=== PATIENT | female | born 1980 | race Caucasian/White ===

== ENCOUNTER → 2016-09-05 | Outpatient (CLI) | payer OTHER ==
--- NOTE | 2016-09-05 15:28 | US ---
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 15 oz. WEIGHT PERCENTAGE BASED ON ESTABLISHED DATE: 95 % HC/AC: 1.1 FL/AC: 21 HEART RATE: 146 bpm RHYTHM: Normal ANATOMY SEEN (within normal limits): * Lateral Vent (< 1 cm) 0.5cm * Cisterna Magna (< 1.1 cm) 0.4cm * Nuchal Fold (< 0.6 cm) 0.3cm * Cerebellum (varies with age) 2.2cm Choroid Plexus (bilateral) Midline Falx Cavus Septi Pellucidi Four Chamber Heart Outflow tracts: LVOT/RVOT Stomach Situs Nose / Lips Diaphragm Kidneys (bilateral) Bladder Cord Insert Three Vessel Cord Longitudinal Spine Transverse Spine Arms (bilateral) Legs (bilateral) TECHNOLOGIST IMPRESSION: Viable 21w6d fetus seen and appears wnl Single live intrauterine gestation is present. heart tones are regular and measure 146 bpm whic h is within normal limits. There is no ultrasound evidence for placenta previa. Amniotic fluid index is upper limits of normal. Normal cephalad presentation to fetus is currently identified. biome try measurements are within normal limits. Detailed anatomical survey shows no suspicious abnormality during real-time scanning. Stomach bubble is slightly prominent on still images saved. IMPRESSION: As above
--- NOTE | 2016-09-18 16:48 | US ---
EXAMINATION TYPE: US OB Call Back DATE OF EXAM: 09/18/2016 4:39 PM COMPARISON: NONE CLINICAL HISTORY: OB CALLBACK. called back for prominent stomach bubble on anatomy scan. GESTATIONAL AGE / DATING Dates by Initial Survey Scan: (20 weeks/3 days) EDC: 10/20/2016 HEART RATE: 149 bpm RHYTHM: Normal ANATOMY SEEN (second anatomic survey look): Stomach: APPEARS NORMAL IMPRESSION: No distinct gastric abnormality identified at this time.
== END | disposition home or self-care (01) ==
LOC: RADUSWWP 12:39
PROVIDERS: ATTEND Obstetrics & Gynecology
DX: O36.62X0 Maternal care for excessive fetal growth, second trimester, not applicable or unspecified (principal)
CPT/HCPCS: 76811

== ENCOUNTER → 2016-09-18 | Outpatient (CLI) | payer OTHER ==
[2016-09-18 16:56] LABS: CH 31.2; CHCM 34.1; HCT 37.9 % (34.0-46.0); HDW 2.58; HGB 12.7 gm/dL (11.4-16.0); MCH 30.7 pg (25.0-35.0); MCHC 33.5 g/dL (31.0-37.0); MCV 91.9 fL (80.0-100.0); Mean Platelet Volume 6.8; RBC 4.12 m/uL (3.80-5.40); RDW 13.6 % (11.5-15.5); WBC 10.3 k/uL (3.8-10.6)
[2016-09-18 17:16] LABS: Glucose 98 mg/dL (74-99); Non-African American GFR(MDRD) >60 (>60 ml/min/1.73 sqM)
[2016-09-18 17:47] LABS: Hepatitis B Surface Ag Index 0.07
== END | disposition home or self-care (01) ==
LOC: LABWHC1 16:20
PROVIDERS: ATTEND Obstetrics & Gynecology
DX: Z34.02 Encounter for supervision of normal first pregnancy, second trimester (principal); Z34.82 Encounter for supervision of other normal pregnancy, second trimester; Z3A.00 Weeks of gestation of pregnancy not specified
CPT/HCPCS: 36415; 82565; 82947; 85027; 86762; 86780; 86850; 86900; 86901; 87340

== ENCOUNTER → 2016-12-19 | Outpatient (CLI) | payer OTHER ==
[2016-12-19 11:54] LABS: CHCM 33.6; HCT 34.9 % (34.0-46.0); HDW 2.81; HGB 11.8 gm/dL (11.4-16.0); MCH 30.2 pg (25.0-35.0); MCHC 33.7 g/dL (31.0-37.0); MCV 89.7 fL (80.0-100.0); Mean Platelet Volume 7.1; RBC 3.89 m/uL (3.80-5.40); RDW 13.4 % (11.5-15.5); WBC 9.3 k/uL (3.8-10.6)
== END | disposition home or self-care (01) ==
LOC: LABWHC1 10:22
PROVIDERS: ATTEND Obstetrics & Gynecology
DX: Z34.83 Encounter for supervision of other normal pregnancy, third trimester (principal)
CPT/HCPCS: 36415; 82950; 85027

== ENCOUNTER → 2016-12-22 | Outpatient (CLI) | payer OTHER ==
[2016-12-22 13:05] LABS: Glucose 3 Hour, Gest 138 mg/dL
== END | disposition home or self-care (01) ==
LOC: LABWHC1 08:26
PROVIDERS: ATTEND Obstetrics & Gynecology
DX: O99.810 Abnormal glucose complicating pregnancy (principal); Z3A.00 Weeks of gestation of pregnancy not specified
CPT/HCPCS: 36415; 82951; 82952

== ENCOUNTER 2017-01-05 19:35 | Inpatient (IN) | payer OTHER ==
[2017-01-05] MEDS ORDERED: TERBUTALINE 1 MG/ML VIAL SQ PRN (20:12)
[2017-01-05] MEDS ORDERED: AMPICILLIN 2,000 MG in SODIUM CHLORIDE 0.9% 100 ML IVPB STA (20:12)
[2017-01-05] MEDS ORDERED: CARBOPROST TROMETHAMINE 250 MCG/ML 1 ML AMP IM PRN (20:12)
[2017-01-05] MEDS ORDERED: OXYTOCIN 10 UNIT/ML 1 ML VIAL IM PRN (20:12)
[2017-01-05] MEDS ORDERED: METHYLERGONOVINE 0.2 MG/ML 1 ML AMP IM PRN (20:12)
[2017-01-05] MEDS ORDERED: LIDOCAINE 1% (PF) 10 MG/ML (30 ML SDV) SQ PRN (20:12)
[2017-01-05] MEDS: LACTATED RINGERS 1,000 ML IV SCH ×2 (20:15→22:47)
[2017-01-05 20:31] LABS: Basophils % (A) 0 %; CH 30.5; CHCM 35.3; Eosinophils # (A) 0.1 k/uL (0-0.7); Eosinophils % (A) 1 %; HCT 33.9 % (34.0-46.0); HGB 11.9 gm/dL (11.4-16.0); Luc # (Auto) 0.19; Luc % (Auto) 2; Lymphocytes % (A) 19 %; MCH 30.5 pg (25.0-35.0); MCHC 35.1 g/dL (31.0-37.0); MCV 86.9 fL (80.0-100.0); Mean Platelet Volume 7.9; Monocytes # (A) 0.4 k/uL (0-1.0); Monocytes % (A) 3 %; Neutrophils % (A) 75 %; RBC 3.91 m/uL (3.80-5.40); RDW 13.5 % (11.5-15.5); WBC 10.6 k/uL (3.8-10.6); WBC (Perox) 10.63
[2017-01-05] MEDS ORDERED: fentaNYL (PF) 50 MCG/ML 5 ML AMP ONE (20:39)
[2017-01-05] MEDS ORDERED: BUPIVACAINE (PF) 0.25% 30 ML VIAL ONE (20:39)
[2017-01-05] MEDS ORDERED: SODIUM CHLORIDE 0.9% 100 ML BAG ONE (20:39)
[2017-01-05] MEDS ORDERED: BUPIVACAINE (PF) 0.25% 25 ML, fentaNYL (PF) 200 MCG in SODIUM CHLORIDE 0.9% 71 ML EPIDURAL ONE (20:56)
[2017-01-05 21:02] VITALS: BMI 26.0
[2017-01-05] MEDS: OXYTOCIN 20 UNITS/1000 ML NS 1,000 ML IV SCH (21:30)
[2017-01-05] MEDS ORDERED: HYDROCORTISONE 2.5% RECTAL CREAM 30 GM TUBE RECTAL PRN (23:56)
[2017-01-05] MEDS ORDERED: ZOLPIDEM 5 MG TAB PO PRN (23:56)
[2017-01-05] MEDS ORDERED: SIMETHICONE 80 MG CHEWABLE PO PRN (23:56)
[2017-01-05] MEDS ORDERED: LANOLIN CREAM 5 GM TUBE TOPICAL PRN (23:56)
[2017-01-05] MEDS ORDERED: diphenhydrAMINE 50 MG/ML 1 ML VIAL IVP PRN ×2 (23:56)
[2017-01-05] MEDS ORDERED: BENZOCAINE SPRAY 57GM TOPICAL PRN (23:56)
[2017-01-05] MEDS ORDERED: Acetaminophen-Codeine 300-30mg TAB PO PRN ×2 (23:56)
[2017-01-05] MEDS ORDERED: diphenhydrAMINE 50 MG CAP PO PRN (23:56)
[2017-01-05] MEDS ORDERED: diphenhydrAMINE 25 MG CAP PO PRN (23:56)
[2017-01-05] MEDS ORDERED: WITCH HAZEL 1 EACH MED..PAD TOPICAL PRN (23:56)
--- NOTE | 2017-01-05 23:59 | P.HPOB ---
History of Present Illness H&P Date: 01/05/17 Chief Complaint: IUP term: premature rupture of membranes Kristina is 36 and at 37 weeks 6 days gestation who arrives following spontaneous rupture membranes. She is unclear as to when exactly her membranes ruptured it may have been up to 2 days ago. An Essure was positive. Her course otherwise has been uncomplicated and she is feeling well at this time she has had no other significant problems with the . Pertinent labs do include B+ blood type Rh generally was negative. Rubella was immune, hepatitis B surface antigen and RPR as well as GBS were all negative. On physical exam vital signs are stable and afebrile. Heart regular, lungs clear, extremities without pain. Abdomen soft gravid uterus is noted. heart tones are 140s and are reactive. She is amada every approximately 5 -7 minutes somewhat irregularly. Assessment intrauterine with unknown length of premature rupture of membranes. Getting to get into labor now. Term . Plan Pitocin augmentation of labor she expects using an epidural for analgesia. Past Medical History Past Medical History: GERD/Reflux Additional Past Medical History / Comment(s): Obstetric history: She has had 2 previous term deliveries. 2 miscarriages and 1 voluntary termination. This is her fifth and she's had care with Dr. Santo since 9 weeks gestation. Blood type B positive, antibodies negative, rubella immune, hepatitis B-, HIV nonreactive, cystic fibrosis negative, toxoplasmosis negative , GBS negative. At 32 weeks she was having some contractions and was dilated to 2 and half centimeters so Celestone was given. History of Any Multi-Drug Resistant Organisms: None Reported Additional Past Surgical History / Comment(s): D&C x 1 Past Anesthesia/Blood Transfusion Reactions: No Reported Reaction Past Psychological History: No Psychological Hx Reported Smoking Status: Former smoker Past Alcohol Use History: None Reported Past Drug Use History: None Reported - Past Family History Mother Family Medical History: Hypertension Father History Unknown: Yes Family Medical History: Hypertension Medications and Allergies Home Medications Medication Instructions Recorded Confirmed Type Pnv,Calcium 72/Iron/Folic Acid 1 each PO DAILY 09/23/15 10/26/15 History [ Plus Tablet] Allergies Allergy/AdvReac Type Severity Reaction Status Date / Time sulfamethoxazole Allergy Severe Anaphylaxis Verified 01/05/17 23:14 [From Bactrim] trimethoprim [From Bactrim] Allergy Severe Anaphylaxis Verified 01/05/17 23:14 Exam Osteopathic Statement: *. No significant issues noted on an osteopathic structural exam other than those noted in the History and Physical/Consult. - Vital Signs Vital signs: Vital Signs Temp Pulse Resp BP 01/05/17 20:56 18 01/05/17 20:15 97.4 F L 99 18 138/87 Intake and Output 01/05/17 01/05/17 01/06/17 14:59 22:59 06:59 Intake Total 1100 Balance 1100 Intake: IV 1100 Ampicillin 2,000 mg In 100 Sodium Chloride 0.9% 100 ml @ 200 mls/hr IVPB ONCE STA Rx#:[id number] Lactated Ringers 1,000 ml 1000 @ 125 mls/hr IV .Q8H COCO Rx#:[id number] Other: # Voids 1 Weight 62.596 kg Patient Weight 01/06/17 06:59 Weight 62.596 kg Results Result Diagrams: 01/05/17 20:20 Abnormal Lab Results - Last 24 Hours (Table) 01/05/17 Range/Units 20:20 Hct 33.9 L (34.0-46.0) % Neutrophils # 8.0 H (1.3-7.7) k/uL
--- NOTE | 2017-01-05 23:59 | P.PROBDLV ---
Vaginal Delivery Note - . Vaginal Delivery Note: Patient progressed to complete and pushed with spontaneous vaginal delivery of a viable male over an intact perineum from left occiput anterior position falling deliver the head a nuchal cord 1 was easily reduced anterior posterior shoulders delivered with gentle downward upper traction followed by the remainder the baby. Baby was then mouth and nares bulb suctioned and placed on mother's abdomen where the umbilical cord was locked pulsate for approximately 30 seconds and then was clamped and cut. Placenta was then delivered intact and Pitocin was added to the IV. scores were 9 and 9 at one and 5 minutes respectively the weight is however pending. Both mother and baby currently appear stable.
[2017-01-06] MEDS ORDERED: AMPICILLIN 1,000 MG in SODIUM CHLORIDE 0.9% 50 ML IVPB SCH (00:30)
[2017-01-06] MEDS: IBUPROFEN 600 MG TAB PO PRN ×4 (02:15→23:51)
[2017-01-06] MEDS: ACETAMINOPHEN TAB 325 MG TAB PO PRN ×2 (05:55→12:21)
[2017-01-06] MEDS: SENNOSIDES-DOCUSATE SODIUM 1 EACH TAB PO SCH ×2 (08:56→19:55)
--- NOTE | 2017-01-06 11:10 | P.PNOBGVD ---
Subjective - Subjective Principal diagnosis: day 1 Interval history: Overall Kristina is doing very well this morning. She is ambulating, voiding, and she is tolerating her diet. She voices no complaints. On physical exam vital signs are stable she is afebrile. Heart regular, lungs clear, extremities without pain. Assessment day 1. Plan continue current care. Patient reports: Reports appetite normal, Reports voiding normally, Reports pain well controlled, Reports ambulating normally [place]: doing well Objective - Latest Vital Signs Latest vital signs: Vital Signs Temp Pulse Resp BP Pulse Ox 01/06/17 08:00 98.2 F 78 20 117/95 99 01/06/17 04:00 98.1 F 72 14 97/50 01/06/17 02:04 97.7 F 80 16 110/62 01/06/17 01:27 97.9 F 83 14 112/61 01/06/17 00:57 97.6 F 87 16 111/64 01/06/17 00:42 68 16 114/67 01/06/17 00:27 98.4 F 74 16 111/64 01/06/17 00:12 85 16 110/60 01/05/17 23:57 97.4 F L 88 18 115/56 01/05/17 20:56 18 01/05/17 20:15 97.4 F L 99 18 138/87 Intake and Output 01/05/17 01/06/17 01/06/17 22:59 06:59 14:59 Intake Total 1100 1207.2 Balance 1100 1207.2 Intake: IV 1100 1200 Ampicillin 2,000 mg In 100 Sodium Chloride 0.9% 100 ml @ 200 mls/hr IVPB ONCE STA Rx#:[id number] Lactated Ringers 1,000 ml 1000 200 @ 125 mls/hr IV .Q8H COCO Rx#:[id number] Oxytocin 20 Units/1000 ml 1000 Ns 1,000 ml @ 1 MILLIUNIT/MIN 3 mls/hr IV .Q24H COCO Rx#:[id number] Intake, IV Titration 7.2 Amount Oxytocin 20 Units/1000 ml 7.2 Ns 1,000 ml @ 1 MILLIUNIT/MIN 3 mls/hr IV .Q24H COCO Rx#:[id number] Other: # Voids 1 1 Weight 62.596 kg - Labs Labs: Abnormal Lab Results - Last 24 Hours (Table) 01/05/17 Range/Units 20:20 Hct 33.9 L (34.0-46.0) % Neutrophils # 8.0 H (1.3-7.7) k/uL
[2017-01-07 01:29] VITALS: RESP 16
[2017-01-07] MEDS: OXYTOCIN 20 UNITS/1000 ML NS 1,000 ML IV SCH (03:28)
[2017-01-07] MEDS: LACTATED RINGERS 1,000 ML IV SCH ×2 (03:28→05:03)
--- NOTE | 2017-01-07 08:16 | P.DS ---
Providers Date of admission: 01/05/17 20:08 Expected date of discharge: 01/07/17 Attending physician: Merary Santo Primary care physician: Stated None Hospital Course: Kristina is doing very well day 2. She is ambulating, voiding, and she is tolerating her diet. She voices no complaints. We'll plan discharged home today. She requests nothing for pain. Prescription for breast pump has been provided. All questions are answered for her prior to discharge. Her vital signs are stable and afebrile. Heart regular, lungs clear, extremities without pain. Abdomen soft uterus is firm lochia is reported be light. Assessment day 2. Plan follow-up with Dr. Dean in 6 weeks. Patient Condition at Discharge: Good Plan - Discharge Summary New Discharge Prescriptions: No Action Pnv,Calcium 72/Iron/Folic Acid [ Plus Tablet] 1 each PO DAILY Discharge Medication List Pnv,Calcium 72/Iron/Folic Acid [ Plus Tablet] 1 each PO DAILY 09/23/15 [ History] Follow up Appointment(s)/Referral(s): Merary Santo DO [Doctor of Osteopathic Medicine] - 6 Weeks Activity/Diet/Wound Care/Special Instructions: IV lifting, limit stairs and driving and pelvic rest. If any high temperatures , heavy bleeding, or severe pain call my office Discharge Disposition: HOME SELF-CARE
[2017-01-07 08:59] VITALS: BP 115/74; PULSE 80; TEMP 98.6
== END 2017-01-07 14:59 | disposition home or self-care (01) | DRG 775 ==
LOC: FBPOP 19:35 → 4FBP 20:08
PROVIDERS: ADMIT Obstetrics & Gynecology; ATTEND Obstetrics & Gynecology
PROC: 10E0XZZ Delivery of Products of Conception, External Approach (ICD-10-PCS; principal; 2017-01-05)
PROC: 00HU33Z Insertion of Infusion Device into Spinal Canal, Percutaneous Approach (ICD-10-PCS; 2017-01-05)
PROC: 3E0R3CZ (ICD-10-PCS; 2017-01-05)
DX: O42.92 Full-term premature rupture of membranes, unspecified as to length of time between rupture and onset of labor (principal); O69.81X0 Labor and delivery complicated by cord around neck, without compression, not applicable or unspecified; O99.62 Diseases of the digestive system complicating childbirth; K21.9 Gastro-esophageal reflux disease without esophagitis; Z37.0 Single live birth; Z3A.37 37 weeks gestation of pregnancy; Z87.891 Personal history of nicotine dependence; Z79.899 Other long term (current) drug therapy
CPT/HCPCS: 59025; 85025; 88307; 99213

== ENCOUNTER 2018-01-10 12:14 | Outpatient (CLI) | payer OTHER ==
[2018-01-10 12:23] VITALS: BP 118/75; PULSE 90
[2018-01-10 14:05] VITALS: RESP 14; TEMP 98.4
--- NOTE | 2018-01-14 08:53 | P.MSEPDOC ---
Presenting Problems - Arrival Data Date of Arrival on Unit: 01/10/18 Time of Arrival on Unit: 12:15 Mode of Transport: Ambulatory - Complaint OB-Reason for Admission/Chief Complaint: Possible Onset of Labor Comment: contractions 05 Medical History - Information : 7 Para: 4 Term: 4 : 0 Abortions: Spontaneous or Elective: 2 Number of Living Children: 4 - Gestational Age Gestational Age by NIURKA (wks/days): 35 Weeks and 4 Days Review of Systems - Review of Systems Constitutional: No problems Breast: No problems ENT: No problems Cardiovascular: No problems Respiratory: No problems Gastrointestinal: No problems Genitourinary: No problems Musculoskeletal: No problems Neurological: No problems Skin: No problems Vital Signs - Temperature Temperature: 98.4 F Temperature Source: Temporal Artery Scan - Pulse Right Brachial Pulse Rate: 90 Pulse Assessment Method: Automatic Cuff - Respirations Respiratory Rate: 14 Oxygen Delivery Method: Room Air - Blood Pressure Right Arm Blood Pressure: 118/75 Blood Pressure Mean: 89 Blood Pressure Source: Automatic Cuff Medical Screen Scoring (Pre) - Cervical Exam Dilation: 1-3 cm = 1 Effacement: More than 50% = 2 Membranes: Intact - Uterine Contractions Frequency: > 5 minutes apart = 1 Duration: N/A Intensity: N/A - Maternal Vital Signs Maternal Temperature: N/A Maternal Blood Pressure: N/A Signs of Preeclampsia: N/A Maternal Respirations: N/A - Pain Assessment Pain Location and Character: Abdomen Pain Scale Used: Numeric (1 - 10) Pain Intensity: 2 Pain Frequency: Intermittent Pain Duration Units: Hours Pain Behavior: None Exhibited Pain Aggravating Factors: Contractions - Assessment Baseline FHR: 135 Heart Rate - NICHD Category: Category I (Normal) = 0 NST: Reactive Position: N/A Station: N/A - Total Score Total Score (Pre): 4 - Level of Risk Level of Risk: Low (0-5) Physician Notification (Pre) - Physician Notified Physician Notified Date: 01/10/18 Physician Notified Time: 13:27 Physician/Practitioner Notifed:: mackenzie Spoke With: mackenzie New Order Received: Yes - Notification Comment Comment: pt may be discharged home Disposition - Disposition OB Disposition: Discharge to home Discharge Date: 01/10/18 Discharge Time: 13:45 I agree with the RN Medical Screening Exam: Yes Risk & Benefit of care provided described in d/c instruction: Yes Diagnosis: FALSE LABOR BEFORE 37 COMPLETED WEEKS OF GEST, THIRD TRI
== END 2018-01-10 13:45 | disposition home or self-care (01) ==
LOC: FBPOP 12:14
PROVIDERS: ATTEND Obstetrics & Gynecology
DX: O47.03 False labor before 37 completed weeks of gestation, third trimester (principal); Z3A.35 35 weeks gestation of pregnancy
CPT/HCPCS: 59025; G0463; 99213

== ENCOUNTER 2018-01-18 16:18 | Inpatient (IN) | payer OTHER ==
[2018-01-18] MEDS: LACTATED RINGERS 1,000 ML IV SCH ×2 (16:30→18:00)
[2018-01-18] MEDS ORDERED: LIDOCAINE 1% (PF) 10 MG/ML (30 ML SDV) SQ PRN (16:35)
[2018-01-18] MEDS ORDERED: OXYTOCIN 10 UNIT/ML 1 ML VIAL IM PRN (16:35)
[2018-01-18] MEDS ORDERED: METHYLERGONOVINE 0.2 MG/ML 1 ML AMP IM PRN (16:35)
[2018-01-18] MEDS ORDERED: CARBOPROST TROMETHAMINE 250 MCG/ML 1 ML AMP IM PRN (16:35)
[2018-01-18] MEDS ORDERED: TERBUTALINE 1 MG/ML VIAL SQ PRN (16:35)
[2018-01-18] MEDS ORDERED: fentaNYL (PF) 50 MCG/ML 5 ML AMP ONE (16:56)
[2018-01-18] MEDS ORDERED: SODIUM CHLORIDE 0.9% 100 ML BAG ONE (16:56)
[2018-01-18] MEDS ORDERED: BUPIVACAINE (PF) 0.25% 30 ML VIAL ONE (16:56)
[2018-01-18 17:04] LABS: Basophils # (A) 0.1 k/uL (0-0.2); Basophils % (A) 0 %; Eosinophils # (A) 0.1 k/uL (0-0.7); Eosinophils % (A) 1 %; HCT 36.1 % (34.0-46.0); HGB 12.1 gm/dL (11.4-16.0); Lymphocytes # (A) 2.2 k/uL (1.0-4.8); Lymphocytes % (A) 20 %; MCH 28.3 pg (25.0-35.0); MCHC 33.5 g/dL (31.0-37.0); MCV 84.6 fL (80.0-100.0); Mean Platelet Volume 7.5; Monocytes # (A) 0.6 k/uL (0-1.0); Monocytes % (A) 5 %; Neutrophils % (A) 72 %; Platelet Count 220 k/uL (150-450); RBC 4.27 m/uL (3.80-5.40); RDW 13.6 % (11.5-15.5)
[2018-01-18] MEDS ORDERED: ROPIVACAINE 100 MG, fentaNYL (PF) 200 MCG in SODIUM CHLORIDE 0.9% 76 ML EPIDURAL ONE (17:14)
[2018-01-18 18:13] VITALS: BMI 26.4
[2018-01-18] MEDS ORDERED: OXYTOCIN 20 UNITS/1000 ML NS 1,000 ML IV SCH (20:18)
[2018-01-18] MEDS ORDERED: diphenhydrAMINE 25 MG CAP PO PRN (20:22)
[2018-01-18] MEDS ORDERED: diphenhydrAMINE 50 MG CAP PO PRN (20:22)
[2018-01-18] MEDS ORDERED: diphenhydrAMINE 50 MG/ML 1 ML VIAL IVP PRN ×2 (20:22)
[2018-01-18] MEDS ORDERED: WITCH HAZEL 1 EACH MED..PAD TOPICAL PRN (20:22)
[2018-01-18] MEDS ORDERED: ZOLPIDEM 5 MG TAB PO PRN (20:22)
[2018-01-18] MEDS ORDERED: HYDROCORTISONE 2.5% RECTAL CREAM 30 GM TUBE RECTAL PRN (20:22)
[2018-01-18] MEDS ORDERED: ACETAMINOPHEN TAB 325 MG TAB PO PRN (20:22)
[2018-01-18] MEDS ORDERED: BENZOCAINE/MENTHOL SPRAY 1 GM/SPRAY AEROSOL TOPICAL PRN (20:22)
[2018-01-18] MEDS ORDERED: SIMETHICONE 80 MG CHEWABLE PO PRN (20:22)
[2018-01-18] MEDS ORDERED: LANOLIN CREAM 5 GM TUBE TOPICAL PRN (20:22)
--- NOTE | 2018-01-18 20:28 | P.HPOB ---
History of Present Illness H&P Date: 01/18/18 Chief Complaint: Intrauterine at 36 weeks active labor Kristina is a 37-year-old at 36 weeks gestation who was seen in the office today complaining of contractions. She was noted contractions every 3 minutes and was dilated to 4 cm in the office. Time she was seen in labor and delivery she was Binu 5 cm and was admitted for labor. Her course was, K by advanced maternal age. There was an early ultrasound revealed dilated kidney on the baby and subsequent ultrasounds did not reveal any other alterations. She was seen by maternal medicine. She had nonstress tests her bladder per the due to advanced maternal age. A maternal 21 was normal. Pertinent labs include B+ blood type. Rh and it was negative, rubella was immune. Hepatitis B surface antigen and RPR both negative Past Medical History Past Medical History: GERD/Reflux Additional Past Medical History / Comment(s): Obstetric history: She has had 2 previous term deliveries. 2 miscarriages and 1 voluntary termination. This is her fifth and she's had care with Dr. Santo since 9 weeks gestation. Blood type B positive, antibodies negative, rubella immune, hepatitis B-, HIV nonreactive, cystic fibrosis negative, toxoplasmosis negative , GBS negative. At 32 weeks she was having some contractions and was dilated to 2 and half centimeters so Celestone was given. History of Any Multi-Drug Resistant Organisms: None Reported Additional Past Surgical History / Comment(s): D&C x 1 Past Anesthesia/Blood Transfusion Reactions: No Reported Reaction Past Psychological History: No Psychological Hx Reported Smoking Status: Never smoker Past Alcohol Use History: None Reported Past Drug Use History: None Reported - Past Family History Mother Family Medical History: Hypertension Father History Unknown: Yes Family Medical History: Hypertension Medications and Allergies Home Medications Medication Instructions Recorded Confirmed Type Pnv,Calcium 72/Iron/Folic Acid 1 each PO DAILY 09/23/15 01/10/18 History [ Plus Tablet] Allergies Allergy/AdvReac Type Severity Reaction Status Date / Time sulfamethoxazole Allergy Severe Anaphylaxis Verified 01/18/18 16:29 [From Bactrim] trimethoprim [From Bactrim] Allergy Severe Anaphylaxis Verified 01/18/18 16:29 Exam Osteopathic Statement: *. No significant issues noted on an osteopathic structural exam other than those noted in the History and Physical/Consult. - Vital Signs Vital signs: Vital Signs Temp Pulse Resp BP 01/18/18 16:41 97.2 F L 90 16 116/79 Intake and Output 01/18/18 01/18/18 01/18/18 06:59 14:59 22:59 Other: Weight 63.503 kg - OBG Physical Exam Breast: both: normal (no masses) Abdomen: bowel sounds normal, no diffuse tenderness, no bruit present, no guarding noted, no hepatomegaly, no splenomegaly, no mass Vulva: both: normal Vagina: normal moisture, no discharge Cervix: no lesion, no discharge Uterus: normal size, normal contour Adnexa: both: normal Anus/Rectum: normal perianal skin, no rectal mass, no hemorrhoids, heme negative Results Result Diagrams: 01/18/18 16:40 Abnormal Lab Results - Last 24 Hours (Table) 01/18/18 Range/Units 16:40 WBC 11.0 H (3.8-10.6) k/uL Neutrophils # 8.0 H (1.3-7.7) k/uL
--- NOTE | 2018-01-18 20:29 | P.PROBDLV ---
Vaginal Delivery Note - . Vaginal Delivery Note: Patient progressed to complete and pushing with spontaneous vaginal delivery of a viable female over an intact perineum. Falling deliver the head anterior posterior shoulders were delivered with gentle downward and upward traction followed by the remainder the baby. Mouth nares were then bulb suctioned and baby was placed on mother's abdomen where the umbilical cord was allowed to pulsate for 30 seconds prior to clamping and cutting. Once this was accomplished baby was turned over to nursery personnel in stable condition. Placenta was then delivered intact. scores and weight are pending but both mother and baby currently appear stable.
[2018-01-19] MEDS: IBUPROFEN 600 MG TAB PO PRN ×3 (01:25→14:16)
[2018-01-19 07:06] VITALS: RESP 18
--- NOTE | 2018-01-19 07:36 | P.PNOBGVD ---
Subjective - Subjective Principal diagnosis: day 1 Interval history: Doing very well. Voices no complaints. Patient reports: Reports appetite normal, Reports voiding normally, Reports pain well controlled, Reports ambulating normally [place]: doing well Objective - Latest Vital Signs Latest vital signs: Vital Signs Temp Pulse Resp BP 01/19/18 04:00 97.7 F 84 18 112/52 01/19/18 00:00 98.1 F 82 16 102/65 01/18/18 22:27 97.4 F L 92 16 113/56 01/18/18 21:57 96 16 114/58 01/18/18 21:27 80 16 113/62 01/18/18 21:12 89 16 111/57 01/18/18 20:57 78 16 116/55 01/18/18 20:42 86 16 117/55 01/18/18 20:27 98.2 F 104 H 16 150/72 01/18/18 16:41 97.2 F L 90 16 116/79 Intake and Output 01/18/18 01/19/18 01/19/18 22:59 06:59 14:59 Other: # Voids 1 1 Weight 63.503 kg - Exam Lungs: bilateral: normal Chest: Normal S1, Normal S2 Extremities: Present: normal Abdomen: Present: normal appearance, soft Uterus: Present: normal, firm - Labs Labs: Abnormal Lab Results - Last 24 Hours (Table) 01/18/18 Range/Units 16:40 WBC 11.0 H (3.8-10.6) k/uL Neutrophils # 8.0 H (1.3-7.7) k/uL
[2018-01-19] MEDS: SENNOSIDES-DOCUSATE SODIUM 1 EACH TAB PO SCH ×2 (08:15→21:07)
[2018-01-19 08:30] VITALS: TEMP 98.2
[2018-01-19 17:20] VITALS: BP 101/62; PULSE 73
== END 2018-01-19 21:10 | disposition home or self-care (01) | DRG 775 ==
LOC: FBPOP 16:18 → 4FBP 16:33
PROVIDERS: ADMIT Obstetrics & Gynecology; ATTEND Obstetrics & Gynecology
PROC: 10E0XZZ Delivery of Products of Conception, External Approach (ICD-10-PCS; principal; 2018-01-18)
DX: O99.62 Diseases of the digestive system complicating childbirth (principal); K21.9 Gastro-esophageal reflux disease without esophagitis; O26.893 Other specified pregnancy related conditions, third trimester; Z37.0 Single live birth; Z3A.36 36 weeks gestation of pregnancy; Z88.1 Allergy status to other antibiotic agents; Z88.2 Allergy status to sulfonamides; Z82.49 Family history of ischemic heart disease and other diseases of the circulatory system
CPT/HCPCS: 59025; 85025; 88307; 99213

== ENCOUNTER → 2018-05-21 | Outpatient (CLI) | payer OTHER ==
[2018-05-21 13:42] LABS: Basophils # (A) 0.1 k/uL (0-0.2); Basophils % (A) 1 %; Eosinophils # (A) 0.1 k/uL (0-0.7); Eosinophils % (A) 1 %; HCT 43.9 % (34.0-46.0); HGB 13.9 gm/dL (11.4-16.0); Lymphocytes # (A) 1.8 k/uL (1.0-4.8); Lymphocytes % (A) 30 %; MCH 27.3 pg (25.0-35.0); MCHC 31.7 g/dL (31.0-37.0); MCV 86.3 fL (80.0-100.0); Mean Platelet Volume 6.8; Monocytes # (A) 0.4 k/uL (0-1.0); Monocytes % (A) 6 %; Neutrophils # (A) 3.7 k/uL (1.3-7.7); Neutrophils % (A) 60 %; Platelet Count 284 k/uL (150-450); RBC 5.09 m/uL (3.80-5.40); RDW 13.7 % (11.5-15.5)
== END | disposition home or self-care (01) ==
LOC: LABPAT 13:04
PROVIDERS: ATTEND Obstetrics & Gynecology
DX: Z01.812 Encounter for preprocedural laboratory examination (principal)
CPT/HCPCS: 36415; 85025

== ENCOUNTER 2018-05-24 06:14 | Day surgery (SDC) | payer OTHER ==
[2018-05-17 14:27] VITALS: BMI 22.6
--- NOTE | 2018-05-23 16:23 | P.HPOB ---
History of Present Illness H&P Date: 05/23/18 Chief Complaint: family planning Has completed family planning and desires permanent sterilzation. scheduled for a laparoscopic tubaligation with filshi clips. r/b/a reviewed in detail and all questions answered prior to proceeding to operating room. Past Medical History Past Medical History: GERD/Reflux Additional Past Medical History / Comment(s): Obstetric history: She has had 2 previous term deliveries. 2 miscarriages and 1 voluntary termination. This is her fifth and she's had care with Dr. Santo since 9 weeks gestation. Blood type B positive, antibodies negative, rubella immune, hepatitis B-, HIV nonreactive, cystic fibrosis negative, toxoplasmosis negative , GBS negative. At 32 weeks she was having some contractions and was dilated to 2 and half centimeters so Celestone was given. History of Any Multi-Drug Resistant Organisms: None Reported Additional Past Surgical History / Comment(s): D&C; [place] teeth extraction Past Anesthesia/Blood Transfusion Reactions: No Reported Reaction Smoking Status: Never smoker - Past Family History Mother Family Medical History: Hypertension Father History Unknown: Yes Family Medical History: Hypertension Medications and Allergies Home Medications Medication Instructions Recorded Confirmed Type No Known Home Medications 05/17/18 05/17/18 History Allergies Allergy/AdvReac Type Severity Reaction Status Date / Time sulfamethoxazole Allergy Severe Anaphylaxis Verified 05/17/18 14:21 [From Bactrim] trimethoprim [From Bactrim] Allergy Severe Anaphylaxis Verified 05/17/18 14:21 Exam Osteopathic Statement: *. No significant issues noted on an osteopathic structural exam other than those noted in the History and Physical/Consult. - OBG Physical Exam Breast: both: normal (no masses) Abdomen: bowel sounds normal, no diffuse tenderness, no bruit present, no guarding noted, no hepatomegaly, no splenomegaly, no mass Vulva: both: normal Vagina: normal moisture, no discharge Cervix: no lesion, no discharge Uterus: normal size, normal contour Adnexa: both: normal Anus/Rectum: normal perianal skin, no rectal mass, no hemorrhoids, heme negative
[~2018-05-24 06:14] MED LIST: DEXAMETHASONE SOD PHOSPHATE 10 MG/ML 1 ML VIAL IV ONE; LACTATED RINGERS 1,000 ML IV SCH; LIDOCAINE 1% 20 ML VIAL (10MG/ML) FOR IV START INTRADERMA PRN; ONDANSETRON 4 MG/2 ML VIAL IVP ONE; Pre Op ABX Message 1 EACH MISC MISCELLANE ONE; SCOPOLAMINE 1.5MG/72HR PATCH TRANSDERM ONE
[2018-05-24 06:48] VITALS: RESP 16
[2018-05-24] MEDS ORDERED: fentaNYL (PF) 50 MCG/ML 2 ML AMP ONE (08:04)
[2018-05-24] MEDS ORDERED: MIDAZOLAM 2 MG/2 ML VIAL ONE (08:04)
[2018-05-24] MEDS ORDERED: SUCCINYLCHOLINE CHLORIDE 100 MG/5 ML SYR IV ONE (08:04)
[2018-05-24] MEDS ORDERED: LIDOCAINE 1% INJ 10MG/ML (20 ML MDV) ONE (08:04)
[2018-05-24] MEDS ORDERED: KETOROLAC 30 MG/ML 1 ML VIAL ONE (08:04)
[2018-05-24] MEDS ORDERED: PROPOFOL 10 MG/ML 20 ML VIAL IV ONE (08:04)
[2018-05-24] MEDS ORDERED: BUPIVACAINE (PF) 0.25% 30 ML VIAL SQ ONE (08:30)
--- NOTE | 2018-05-24 08:42 | P.OP ---
Date of Procedure: 05/24/18 Preoperative Diagnosis: Family planning Postoperative Diagnosis: Same Procedure(s) Performed: Laparoscopic tubal occlusion with Filshie clips Anesthesia: PHYLLIS Surgeon: Raghav Govea Estimated Blood Loss (ml): 3 IV fluids (ml): 350 Urine output (ml): 200 Pathology: none sent Condition: stable Disposition: same day Operative Findings: Normal female pelvic anatomy Description of Procedure: Patient was taken to the operating suite where a general anesthetic was found be adequate. She was prepped and draped in the normal sterile fashion and placed in dorsal lithotomy position. Initially a speculum was inserted into the vagina and the anterior lip of the cervix was identified and grasped with an Allis clamp. It was then sounded to 8 cm and a uterine manipulator was inserted without difficulty. These attachments were then removed and a red rubber cath was used to drain the bladder of urine. Once this was accomplished it was removed and gloves were changed. Attention was then turned to the abdominal portion procedure where 2 mL of quarter percent Marcaine was injected periumbilically. Through this injected anesthetic a 5 mm skin incision was made and through this incision under direct visualization with an optical trocar and sleeve the camera was inserted. Once peritoneal placement was assured gas was allowed to fully insufflate the abdomen and patient was then placed in steep Trendelenburg position. A second port and sleeve were inserted through an 8 mm skin incision 3 cm above the pubic symphysis in the midline. Observations pelvis were noted and first the right fallopian tube than the left fallopian tube had a Filshie clip applied 3 cm from uterine cornu. With no bleeding noted in the mesosalpinx instruments were removed and gas was allowed to expel from the abdomen. 5 deep breaths were provided during this process. Once this was completed 4-0 Vicryl used to close the incision subcuticularly and another 5 mL of quarter percent Marcaine was injected around the incisions. Incidents were then removed from the vagina. Sponge, lap, needle counts were all correct 2. Patient was then taken to the recovery room in stable and satisfactory condition. Plan - Discharge Summary New Discharge Prescriptions: New Ibuprofen [Motrin] 600 mg PO Q6HR PRN #30 tab PRN Reason: Pain Discharge Medication List Ibuprofen [Motrin] 600 mg PO Q6HR PRN #30 tab 05/24/18 [Rx] Follow up Appointment(s)/Referral(s): Raghav Govea DO [Doctor of Osteopathic Medicine] - 2 Weeks Activity/Diet/Wound Care/Special Instructions: No heavy lifting, limit stairs and driving, and pelvic rest. If any high temperatures, heavy bleeding, or severe pain call my office Discharge Disposition: HOME SELF-CARE
[2018-05-24] MEDS ORDERED: LACTATED RINGERS 1,000 ML IV ONE (08:44)
[2018-05-24 08:51] VITALS: TEMP 97.8
[2018-05-24] MEDS: HYDROmorphone 0.5 MG/0.5 ML SYRINGE IVP PRN ×2 (08:59→09:08)
[2018-05-24] MEDS ORDERED: IBUPROFEN 200 MG TAB PO ONE (10:00)
[2018-05-24 10:04] VITALS: BP 130/82; PULSE 76
== END 2018-05-24 10:22 | disposition home or self-care (01) ==
LOC: OR 06:14
PROVIDERS: ATTEND Obstetrics & Gynecology
DX: Z30.2 Encounter for sterilization (principal); K21.9 Gastro-esophageal reflux disease without esophagitis; Z88.2 Allergy status to sulfonamides
CPT/HCPCS: 81025; 58671; J2250; J1100; J2405; J2001; J3010; J1885; J0330; J2704; J1170

== ENCOUNTER 2024-07-09 11:18 | Emergency (ER) | payer OTHER ==
--- NOTE | 2024-07-09 12:01 | ED ---
General Adult HPI - General Source: RN notes reviewed <Smitha Philippe - Last Filed: 07/09/24 11:58> <Roscoe Mazariegos - Last Filed: 07/09/24 14:27> - General Stated complaint: dehydration Time Seen by Provider: 07/09/24 11:58 - History of Present Illness Initial comments: Quick [id number] female presenting for chief complaint of dehydration. States she took a course of amoxicillin 3 weeks ago for dental infection. States she then started to experience diarrhea. Diarrhea resolved last week, however patient still feels dehydrated. States she is experiencing intermittent diffuse muscle cramps. Denies fever, vomiting, abdominal pain, chest pain. She is tolerating orals well states she is drinking a large amount of fluids however still feels dehydrated. (Smitha Philippe) This is a 43-year-old female who presents to the emergency department stating that 3 weeks ago she had a toothache and was placed on amoxicillin. Patient states after that a week later she started having diarrhea and that eventually subsided but for the last week she is felt weak and some tightness in her chest and states when she walks she is so weak feels like she needs to sit down. Patient states she has been drinking 96 ounces or more of water every day and if she does have any kind of nutrition has been boost and she states she has drank a lot of boost but she is also lost 5 pounds. (Roscoe Mazariegos) - Related Data Home Medications Medication Instructions Recorded Confirmed No Known Home Medications 07/09/24 07/09/24 Allergies Allergy/AdvReac Type Severity Reaction Status Date / Time sulfamethoxazole Allergy Severe Anaphylaxis Verified 07/09/24 14:19 [From Bactrim] trimethoprim [From Bactrim] Allergy Severe Anaphylaxis Verified 07/09/24 14:19 Review of Systems ROS Other: All systems not noted in ROS Statement are negative. <Smitha Philippe - Last Filed: 07/09/24 11:58> ROS Other: All systems not noted in ROS Statement are negative. <Roscoe Mazariegos - Last Filed: 07/09/24 14:27> ROS Statement: Those systems with pertinent positive or pertinent negative responses have been documented in the HPI. Past Medical History Past Medical History: GERD/Reflux Additional Past Medical History / Comment(s): Obstetric history: She has had 2 previous term deliveries. 2 miscarriages and 1 voluntary termination. This is her fifth and she's had care with Dr. Santo since 9 weeks gestation. Blood type B positive, antibodies negative, rubella immune, hepatitis B-, HIV nonreactive, cystic fibrosis negative, toxoplasmosis negative, GBS negative. At 32 weeks she was having some contractions and was dilated to 2 and half centimeters so [place] was given. History of Any Multi-Drug Resistant Organisms: None Reported Additional Past Surgical History / Comment(s): D&C; [place] teeth extraction Past Anesthesia/Blood Transfusion Reactions: No Reported Reaction Past Psychological History: No Psychological Hx Reported Past Alcohol Use History: None Reported Past Drug Use History: None Reported - Past Family History Mother Family Medical History: Hypertension Father History Unknown: Yes Family Medical History: Hypertension <Smitha Philippe - Last Filed: 07/09/24 11:58> General Exam <Ping Philippena - Last Filed: 07/09/24 11:58> <Roscoe Mazariegos - Last Filed: 07/09/24 14:27> - General Exam Comments Initial Comments: Visual Physical Exam General: Well-appearing, nontoxic, no acute distress. Head: Normocephalic, atraumatic Eyes: PERRLA, EOMI ENT: Airway patent Chest: Nonlabored breathing Skin: No visual rash, normal skin tone Neuro: Alert and oriented 3 Musculoskeletal: No gross abnormalities (Smitha Philippe) GENERAL: Patient is well-developed and well-nourished. Patient is nontoxic and well- hydrated and is in no acute distress. ENT: Neck is soft and supple. No significant lymphadenopathy is noted. Oropharynx is clear. Moist mucous membranes. Neck has full range of motion without eliciting any pain. EYES: The sclera were anicteric and conjunctiva were pink and moist. Extraocular movements were intact and pupils were equal round and reactive to light. Eyelids were unremarkable. PULMONARY: Unlabored respirations. Good breath sounds bilaterally. No audible rales rhonchi or wheezing was noted. CARDIOVASCULAR: There is a regular rate and rhythm without any murmurs gallops or rubs. ABDOMEN: Soft and nontender with normal bowel sounds. SKIN: Skin is clear with no lesions or rashes and otherwise unremarkable. NEUROLOGIC: Patient is alert and oriented x3. Cranial nerves II through XII are grossly intact. Motor and sensory are also intact. Normal speech, volume and content. Symmetrical smile. MUSCULOSKELETAL: Normal extremities with adequate strength and full range of motion. No lower extremity swelling or edema. No calf tenderness. LYMPHATICS: No significant lymphadenopathy is noted PSYCHIATRIC: Normal psychiatric evaluation. (Roscoe Mazariegos) Course Vital Signs 07/09/24 11:58 Temperature 98.9 F Pulse Rate 80 Respiratory 18 Rate Blood Pressure 125/73 O2 Sat by Pulse 98 Oximetry Medical Decision Making <Smitha Philippe - Last Filed: 07/09/24 11:58> - Lab Data Result diagrams: 07/09/24 13:21 07/09/24 13:21 <Roscoe Mazariegos - Last Filed: 07/09/24 14:27> - Medical Decision Making I completed the quick note portion of this chart signed Smitha Philippe PA-C (Smitha Philippe) EKG is interpreted by myself. EKG shows sinus rhythm at 83 bpm [place] interval is 1 31 QRS is 86 QT interval 373 QTc is 413. Patient EKG shows no ST segment elevation. Was pt. sent in by a medical professional or institution (JACKIE John, [employer], urgent care, hospital, or skilled nursing...) When possible be specific @ -No Did you speak to anyone other than the patient for history (EMS, parent, family, police, friend...)? What history was obtained from this source @ -No Did you review nursing and triage notes (agree or disagree)? Why? @ -I reviewed and agree with nursing and triage notes Were old charts reviewed (outside hosp., previous admission, EMS record, old EKG, old radiological studies, urgent care reports/EKG's, skilled nursing records)? Report findings @ -No old charts were reviewed Differential Diagnosis? @ -Differential Weakness: Hypoglycemia, shock, sepsis, hyponatremia, anemia, infection, AR, ETOH, adverse medicine reaction, overdose, stroke, this is not meant to be an all-inclusive list. EKG interpreted by me (3pts min.). @ -As above X-rays interpreted by me (1pt min.). @ -None done CT interpreted by me (1pt min.). @ -None done U/S interpreted by me (1pt. min.). @ -None done What testing was considered but not performed or refused? (CT, X-rays, U/S, labs)? Why? @ -None What meds were considered but not given or refused? Why? @ -None Did you discuss the management of the patient with other professionals (professionals i.e. , PA, [employer], lab, RT, psych nurse, psychologist social, import export manager, teacher, combat systems officer, pillowcase maker)? Give summary @ -No Was smoking cessation discussed for >3mins.? @ -No Was critical care preformed (if so, how long)? @ -No Were there social determinants of health that impacted care today? How? (Homelessness, low income, unemployed, alcoholism, drug addiction, transportation, low edu. Level, literacy, decrease access to med. care, assisted, rehab)? @ -No Was there de-escalation of care discussed even if they declined (Discuss DNR or withdrawal of care, Hospice)? DNR status @ -No What co-morbidities impacted this encounter? (DM, HTN, Smoking, COPD, CAD, Cancer, CVA, ARF, Chemo, Hep., AIDS, mental health diagnosis, sleep apnea, mo rbid obesity)? @ -None Was patient admitted / discharged? Hospital course, mention meds given and [place], prescriptions, significant lab abnormalities, going to OR and other pertinent info. @ -All of the patient's lab work was within normal range. Patient's urine was normal patient was not . Patient still felt weak however she states she has not been eating food for over a week. Undiagnosed new problem with uncertain prognosis? @ -No Drug Therapy requiring intensive monitoring for toxicity (Heparin, Nitro, Insulin, Cardizem)? @ -No Were any procedures done? @ -No Diagnosis/symptom? @ -Weakness Acute, or Chronic, or Acute on Chronic? @ -Acute Uncomplicated (without systemic symptoms) or Complicated (systemic symptoms)? @ -Complicate Side effects of treatment? @ -No Exacerbation, Progression, or Severe Exacerbation? @ -No Poses a threat to life or bodily function? How? (Chest pain, [place], AR, pneumonia, PE, COPD, DKA, ARF, appy, cholecystitis, CVA, Diverticulitis, Homicidal, [place], threat to staff... and all critical care pts) @ -No (Roscoe Mazariegos) - Lab Data Lab Results 07/09/24 07/09/24 07/09/24 Range/Units 13:21 13:21 13:21 WBC (3.8-10.6) k/uL RBC (3.80-5.40) m/uL Hgb (11.4-16.0) gm/dL Hct (34.0-46.0) % MCV (80.0-100.0) fL MCH (25.0-35.0) pg MCHC (31.0-37.0) g/dL RDW (11.5-15.5) % Plt Count (150-450) k/uL MPV Neutrophils % % Lymphocytes % % Monocytes % % Eosinophils % % Basophils % % Neutrophils # (1.3-7.7) k/uL Lymphocytes # (1.0-4.8) k/uL Monocytes # (0-1.0) k/uL Eosinophils # (0-0.7) k/uL Basophils # (0-0.2) k/uL Sodium 138 (137-145) mmol/L Potassium 4.3 (3.5-5.1) mmol/L Chloride 105 (98-107) mmol/L Carbon Dioxide 26 (22-30) mmol/L Anion Gap 7 mmol/L BUN 8 (7-17) mg/dL Creatinine 0.63 (0.52-1.04) mg/dL Est GFR (CKD-EPI)AfAm >90 (>60 ml/min/1.73 sqM) Est GFR (CKD-EPI)NonAf >90 (>60 ml/min/1.73 sqM) Glucose 93 (74-99) mg/dL Plasma Lactic Acid Aaron 0.8 (0.7-2.0) mmol/L Calcium 9.7 (8.4-10.2) mg/dL Magnesium 2.1 (1.6-2.3) mg/dL Total Bilirubin 0.3 (0.2-1.3) mg/dL AST 21 (14-36) U/L ALT 19 (4-34) U/L Alkaline Phosphatase 58 (38-126) U/L Total Protein 7.4 (6.3-8.2) g/dL Albumin 4.9 (3.5-5.0) g/dL Lipase 314 H (23-300) U/L Urine Color Urine Appearance (Clear) Urine pH (5.0-8.0) Ur Specific [place] (1.001-1.035) Urine Protein (Negative) Urine Glucose (UA) (Negative) Urine Ketones (Negative) Urine Blood (Negative) Urine Nitrite (Negative) Urine Bilirubin (Negative) Urine Urobilinogen (<2.0) mg/dL Ur Leukocyte Esterase (Negative) Urine HCG, Qual Not Detected (Not Detectd) 07/09/24 07/09/24 Range/Units 13:21 13:21 WBC 7.4 (3.8-10.6) k/uL RBC 4.81 (3.80-5.40) m/uL Hgb 14.1 (11.4-16.0) gm/dL Hct 42.5 (34.0-46.0) % MCV 88.3 (80.0-100.0) fL MCH 29.3 (25.0-35.0) pg MCHC 33.2 (31.0-37.0) g/dL RDW 13.0 (11.5-15.5) % Plt Count 287 (150-450) k/uL MPV 7.4 Neutrophils % 67 % Lymphocytes % 22 % Monocytes % 6 % Eosinophils % 2 % Basophils % 1 % Neutrophils # 5.0 (1.3-7.7) k/uL Lymphocytes # 1.7 (1.0-4.8) k/uL Monocytes # 0.5 (0-1.0) k/uL Eosinophils # 0.1 (0-0.7) k/uL Basophils # 0.1 (0-0.2) k/uL Sodium (137-145) mmol/L Potassium (3.5-5.1) mmol/L Chloride (98-107) mmol/L Carbon Dioxide (22-30) mmol/L Anion Gap mmol/L BUN (7-17) mg/dL Creatinine (0.52-1.04) mg/dL Est GFR (CKD-EPI)AfAm (>60 ml/min/1.73 sqM) Est GFR (CKD-EPI)NonAf (>60 ml/min/1.73 sqM) Glucose (74-99) mg/dL Plasma Lactic Acid Aaron (0.7-2.0) mmol/L Calcium (8.4-10.2) mg/dL Magnesium (1.6-2.3) mg/dL Total Bilirubin (0.2-1.3) mg/dL AST (14-36) U/L ALT (4-34) U/L Alkaline Phosphatase (38-126) U/L Total Protein (6.3-8.2) g/dL Albumin (3.5-5.0) g/dL Lipase (23-300) U/L Urine Color Colorless Urine Appearance Clear (Clear) Urine pH 7.5 (5.0-8.0) Ur Specific [place] 1.005 (1.001-1.035) Urine Protein Negative (Negative) Urine Glucose (UA) Negative (Negative) Urine Ketones Negative (Negative) Urine Blood Negative (Negative) Urine Nitrite Negative (Negative) Urine Bilirubin Negative (Negative) Urine Urobilinogen <2.0 (<2.0) mg/dL Ur Leukocyte Esterase Negative (Negative) Urine HCG, Qual (Not Detectd) Disposition <Smitha Philippe - Last Filed: 07/09/24 11:58> Is patient prescribed a controlled substance at d/c from ED?: No Time of Disposition: 14:27 <Roscoe Mazariegos - Last Filed: 07/09/24 14:27> Clinical Impression: Weakness Disposition: HOME SELF-CARE Condition: Good Instructions (If sedation given, give patient instructions): Weakness (ED) Referrals: Leigh Smith MD [Primary Care Provider] - 1-2 days
[2024-07-09 12:02] VITALS: TEMP 98.9
[2024-07-09 13:29] LABS: Basophils # (A) 0.1 k/uL (0-0.2); Basophils % (A) 1 %; Eosinophils # (A) 0.1 k/uL (0-0.7); Eosinophils % (A) 2 %; HCT 42.5 % (34.0-46.0); HGB 14.1 gm/dL (11.4-16.0); Lymphocytes # (A) 1.7 k/uL (1.0-4.8); Lymphocytes % (A) 22 %; MCH 29.3 pg (25.0-35.0); MCHC 33.2 g/dL (31.0-37.0); MCV 88.3 fL (80.0-100.0); Mean Platelet Volume 7.4; Monocytes # (A) 0.5 k/uL (0-1.0); Monocytes % (A) 6 %; Neutrophils % (A) 67 %; Platelet Count 287 k/uL (150-450); RBC 4.81 m/uL (3.80-5.40); WBC 7.4 k/uL (3.8-10.6)
[2024-07-09 13:41] LABS: Appearance,Urine Clear (Clear); Bilirubin,Urine Negative (Negative); Blood,Urine Negative (Negative); Color,Urine Colorless; Glucose,Urine (UA) Negative (Negative); Ketones,Urine Negative (Negative); Leukocyte Esterase,Urine Negative (Negative); Nitrite,Urine Negative (Negative); PH, Urine 7.5 (5.0-8.0); Protein,Urine Negative (Negative); Specific Gravity,Urine 1.005 (1.001-1.035); Urobilinogen,Urine <2.0 mg/dL (<2.0)
[2024-07-09 13:43] LABS: ALT 19 U/L (4-34); AST 21 U/L (14-36); African American GFR (CKD) >90 (>60 ml/min/1.73 sqM); Albumin 4.9 g/dL (3.5-5.0); Alkaline Phosphatase 58 U/L (38-126); Anion Gap 7 mmol/L; Blood Urea Nitrogen 8 mg/dL (7-17); Calcium 9.7 mg/dL (8.4-10.2); Carbon Dioxide 26 mmol/L (22-30); Chloride 105 mmol/L (98-107); Glucose 93 mg/dL (74-99); Lipase 314 U/L (23-300); Magnesium 2.1 mg/dL (1.6-2.3); Non-African American GFR(CKD) >90 (>60 ml/min/1.73 sqM); Potassium 4.3 mmol/L (3.5-5.1); Sodium 138 mmol/L (137-145); Total Bilirubin 0.3 mg/dL (0.2-1.3); Total Protein 7.4 g/dL (6.3-8.2)
[2024-07-09 14:40] VITALS: BP 114/78; PULSE 78; RESP 16
== END 2024-07-09 14:44 | disposition home or self-care (01) ==
LOC: EC 11:18
DX: R53.1 Weakness (principal); Z88.1 Allergy status to other antibiotic agents; Z88.2 Allergy status to sulfonamides
CPT/HCPCS: 36415; 80053; 81003; 81025; 83605; 83690; 83735; 85025; 93005; 99285